=== PATIENT | male | born 1945 | race Caucasian/White ===

== ENCOUNTER 2019-01-17 20:29 | Emergency (ER) | payer OTHER ==
[~2019-01-17] VITALS: Ht 180.3 cm; Wt 131.5 kg
[2019-01-17 21:26] LABS: Source, Urine Clean Catch
[2019-01-17 21:29] LABS: Bilirubin, Urine Neg (Neg); Blood, Urine 5+ (Neg); Glucose Qualitative, Urine Neg (Neg); Ketones, Urine Neg (Neg); Leukocyte Esterase, Urine 3+ (Neg); Nitrite, Urine Pos (Neg); Protein, Urine 3+ (Neg); Specific Gravity, Urine 1.025 (1.003-1.022); Urobilinogen, Urine 1+ (Normal)
[2019-01-17 21:39] LABS: Appearance, Urine Hazy (Clear); Color, Urine Amber (P-Yellow)
[2019-01-17 21:41] LABS: White Blood Cells, Urine TNTC /hpf (0-5)
[2019-01-17 21:42] LABS: Bacteria Many /hpf; Red Blood Cells, Urine 50-100 /hpf (0-2); Squamous Epithelial Cells Few /hpf (Few)
[2019-01-17 22:40] LABS: BASOPHILS ABSOLUTE AUTO 0.06 K/mm3 (0.00-0.23); BASOPHILS PERCENT AUTO 1 % (0-2); EOSINOPHILS ABSOLUTE AUTO 0.21 K/mm3 (0.00-0.68); EOSINOPHILS PERCENT AUTO 2 % (0-6); Hemoglobin 13.3 g/dL (13.5-17.5); IMMATURE GRAN ABSOLUTE AUTO 0.04 K/mm3 (0.00-0.10); IMMATURE GRAN PERCENT AUTO 0 % (0-1); LYMPHOCYTES PERCENT AUTO 19 % (21-46); MONOCYTES ABSOLUTE AUTO 1.09 K/mm3 (0.16-1.47); MONOCYTES PERCENT AUTO 9 % (4-13); Mean Corpuscular HGB Conc 30.9 g/dL (31.5-36.5); Mean Corpuscular Volume 94 fL (80-100); Mean Platelet Volume 10.9 fL (9.1-12.4); NEUTROPHILS PERCENT AUTO 69 % (41-73); Platelet Count 161 K/mm3 (150-400); RDW Coefficient Variation 14.6 % (11.7-14.2); RDW Standard Deviation 50.7 fL (35.1-46.3); Red Blood Cell Count 4.58 M/mm3 (4.30-5.90)
[2019-01-17 22:58] LABS: Alanine Aminotransfer (ALT/SGP 21 U/L (12-78); Albumin/Globulin Ratio 0.8 (0.8-1.8); Alk Phos 130 U/L (50-136); Anion Gap 4 mmol/L (6-16); Aspartate Aminotrans (AST/SGOT 12 U/L (12-37); Bilirubin, Total 0.6 mg/dL (0.1-1.0); Blood Urea Nitrogen 24 mg/dL (8-24); Bun/Creatinine Ratio 26.5 (12.0-20.0); CO2, Blood 30 mmol/L (21-32); Calcium, Blood 8.1 mg/dL (8.5-10.1); Chloride, Blood 111 mmol/L (98-108); Creatinine, Blood 0.91 mg/dL (0.60-1.20); Globulin, Blood 3.7 g/dL (2.2-4.0); Glomerular Filtration Rate >60 (60-); Glucose, Blood 98 mg/dL (70-99); Potassium, Blood 4.1 mmol/L (3.5-5.5); Sodium, Blood 145 mmol/L (136-145); Total Protein, Blood 6.7 g/dL (6.4-8.2)
[2019-01-18] MEDS ORDERED: CEFP200 PO (00:46)
== END 2019-01-18 01:55 | disposition home or self-care (01) ==
LOC: ER 20:29
PROVIDERS: Physician Assistant
DX: N30.91 Cystitis, unspecified with hematuria (principal); J44.9 Chronic obstructive pulmonary disease, unspecified; Z88.5 Allergy status to narcotic agent; Z88.0 Allergy status to penicillin; Z88.1 Allergy status to other antibiotic agents; Z87.891 Personal history of nicotine dependence
CPT/HCPCS: 36415; 80053; 81001; 83690; 85025; 87077; 87086; 87186; 93005; 93010; 94640; 96365; 99283-25; J0696

== ENCOUNTER 2020-05-31 14:20 | Emergency (ER) | payer MEDICARE, OTHER ==
[~2020-05-31] VITALS: Ht 177.8 cm; Wt 96.2 kg
[~2020-05-31 14:20] MED LIST: CEFP200 PO
[2020-05-31 15:09] LABS: BASOPHILS ABSOLUTE AUTO 0.05 K/mm3 (0.00-0.23); BASOPHILS PERCENT AUTO 1 % (0-2); EOSINOPHILS ABSOLUTE AUTO 0.04 K/mm3 (0.00-0.68); EOSINOPHILS PERCENT AUTO 0 % (0-6); Hematocrit 36.7 % (37.0-53.0); Hemoglobin 11.6 g/dL (13.5-17.5); IMMATURE GRAN ABSOLUTE AUTO 0.03 K/mm3 (0.00-0.10); IMMATURE GRAN PERCENT AUTO 0 % (0-1); LYMPHOCYTES ABSOLUTE AUTO 0.66 K/mm3 (0.84-5.20); LYMPHOCYTES PERCENT AUTO 6 % (21-46); MONOCYTES ABSOLUTE AUTO 0.85 K/mm3 (0.16-1.47); MONOCYTES PERCENT AUTO 8 % (4-13); Mean Corpuscular HGB 29.1 pg (26.0-34.0); Mean Corpuscular HGB Conc 31.6 g/dL (31.5-36.5); Mean Corpuscular Volume 92 fL (80-100); Mean Platelet Volume 11.3 fL (9.1-12.4); NEUTROPHILS ABSOLUTE AUTO 9.07 K/mm3 (1.96-9.15); NEUTROPHILS PERCENT AUTO 85 % (41-73); Platelet Count 133 K/mm3 (150-400); RDW Coefficient Variation 13.7 % (11.7-14.2); RDW Standard Deviation 46.2 fL (35.1-46.3); Red Blood Cell Count 3.98 M/mm3 (4.30-5.90)
[2020-05-31 15:29] LABS: Alanine Aminotransfer (ALT/SGP 28 U/L (12-78); Alk Phos 131 U/L (50-136); Anion Gap 5 mmol/L (6-16); Aspartate Aminotrans (AST/SGOT 21 U/L (12-37); Bilirubin, Total 0.7 mg/dL (0.1-1.0); Blood Urea Nitrogen 21 mg/dL (8-24); Bun/Creatinine Ratio 27.1 (12.0-20.0); CO2, Blood 26 mmol/L (21-32); Calcium, Blood 8.3 mg/dL (8.5-10.1); Chloride, Blood 114 mmol/L (98-108); Creatinine, Blood 0.78 mg/dL (0.60-1.20); Globulin, Blood 3.1 g/dL (2.2-4.0); Glomerular Filtration Rate >60 (60-); Glucose, Blood 92 mg/dL (70-99); Potassium, Blood 4.2 mmol/L (3.5-5.5); Sodium, Blood 145 mmol/L (136-145); Total Protein, Blood 6.1 g/dL (6.4-8.2); Troponin I <0.015 ng/mL (0.000-0.040)
[2020-05-31 15:42] LABS: Source, Urine Clean Catch
[2020-05-31 15:50] LABS: Appearance, Urine Hazy (Clear); Bilirubin, Urine Neg (Neg); Blood, Urine 3+ (Neg); Color, Urine Yellow (P-Yellow); Glucose Qualitative, Urine Neg (Neg); Ketones, Urine Neg (Neg); Leukocyte Esterase, Urine 3+ (Neg); Nitrite, Urine Neg (Neg); Protein, Urine 2+ (Neg); Urobilinogen, Urine NORM (Normal)
[2020-05-31 16:03] LABS: Bacteria Mod /hpf; Squamous Epithelial Cells Few /hpf (Few); White Blood Cells, Urine 25-50 /hpf (0-5)
[2020-05-31 16:28] LABS: Influenza A, PCR NEGATIVE (NEGATIVE); Influenza B, PCR NEGATIVE (NEGATIVE); Resp Syncytial Virus, PCR NEGATIVE (NEGATIVE); SARS-Cov-2 (COVID-19) PCR, MMC NEGATIVE (NEGATIVE)
[2020-05-31] MEDS ORDERED: ALBU2.5V5 INH (17:16)
[2020-05-31] MEDS ORDERED: ACET500 PO (17:16)
[2020-05-31] MEDS ORDERED: ALLO300 PO (17:17)
[2020-05-31] MEDS ORDERED: ALBU90OI INH (17:17)
[2020-05-31] MEDS ORDERED: ATOR20 PO (17:18)
[2020-05-31] MEDS ORDERED: CIPR500 PO (17:19)
[2020-05-31] MEDS ORDERED: THERA-D2000 UNIT PO (17:19)
[2020-05-31] MEDS ORDERED: CYCL10 PO (17:20)
[2020-05-31] MEDS ORDERED: CLOB.05TO (17:20)
[2020-05-31] MEDS ORDERED: DOXY100 PO (17:21)
[2020-05-31] MEDS ORDERED: Flonase 0.05% N16 GM (17:23)
[2020-05-31] MEDS ORDERED: FAMO20 PO (17:23)
[2020-05-31] MEDS ORDERED: Isosorbide Mono30 MG PO (17:24)
[2020-05-31] MEDS ORDERED: GUAI200 PO (17:24)
[2020-05-31] MEDS ORDERED: LORA10ER PO (17:25)
[2020-05-31] MEDS ORDERED: Prinivil10 MG PO (17:25)
[2020-05-31] MEDS ORDERED: METF500 PO (17:26)
[2020-05-31] MEDS ORDERED: METO50ER PO (17:27)
[2020-05-31] MEDS ORDERED: MULVITA PO (17:27)
[2020-05-31] MEDS ORDERED: NITR100CA PO (17:28)
[2020-05-31] MEDS ORDERED: STRIVERDI RESPIM4 G1 INH (17:29)
[2020-05-31] MEDS ORDERED: NITR.4SL SL (17:29)
[2020-05-31] MEDS ORDERED: XARELTO20 MG PO (17:29)
[2020-05-31] MEDS ORDERED: ROFL500T PO (17:30)
[2020-05-31] MEDS ORDERED: CEFP200 PO (18:28)
[2020-05-31] MEDS ORDERED: AZIT250 PO (18:28)
== END 2020-05-31 19:04 | disposition home or self-care (01) ==
LOC: ER 14:20
PROVIDERS: Emergency Medicine
DX: J18.9 Pneumonia, unspecified organism (principal); J44.0 Chronic obstructive pulmonary disease with (acute) lower respiratory infection; N39.0 Urinary tract infection, site not specified; R09.02 Hypoxemia; I48.91 Unspecified atrial fibrillation; Z20.822 Contact with and (suspected) exposure to COVID-19; Z88.0 Allergy status to penicillin; Z88.1 Allergy status to other antibiotic agents; Z88.5 Allergy status to narcotic agent; Z79.01 Long term (current) use of anticoagulants; Z79.899 Other long term (current) drug therapy; Z87.891 Personal history of nicotine dependence
CPT/HCPCS: 0241U; 36415; 71045; 80053; 81001; 83605; 83880; 84484; 85025; 87040; 87077; 87086; 87186; 93005; 93010; 96365; 99285-25; A9270; J0456; J7050

== ENCOUNTER 2021-09-03 07:36 | Day surgery (SDC) | payer OTHER, MEDICARE ==
[~2021-09-03] VITALS: Ht 180.3 cm; Wt 102.5 kg
[~2021-09-03 07:36] MED LIST changes: +ACET500 PO; +ALBU2.5V5 INH; +ALBU90OI INH; +ALLO300 PO; +ASPI81CH PO; +ATOR20 PO; +AZIT250 PO; +CIPR500 PO; +CLOB.05TO; +CYCL10 PO; +DOXY100 PO; +FAMO20 PO; +Flonase 0.05% N16 GM; +GUAI200 PO; +Isosorbide Mono30 MG PO; +LORA10ER PO; +METF500 PO; +METO50ER PO; +MULVITA PO; +NITR.4SL SL; +NITR100CA PO; +Prinivil10 MG PO; +ROFL500T PO; +STRIVERDI RESPIM4 G1 INH; +THERA-D2000 UNIT PO; +XARELTO20 MG PO
[2021-09-03] MEDS ORDERED: FURO40 PO (09:16)
[2021-09-03] MEDS ORDERED: FERSU300 PO (09:17)
--- NOTE | 2021-09-03 11:05 | NUR ---
PT TO RECOVERY ROOM POST PROCEDURE. PT AWAKE AND ORIENTED-NO SEDATION GIVEN, DENIES PAIN POST PROCEDURE. MONITOR AFIB 70'S, B/P 125/100, AFEBRILE, SPO2 97% 4L NC-PT CHRONICALLY ON 02. R GROIN NO SWELLING/HEMATOMA, TEGADERM DRSG INTACT; ANGIO SEAL DEPLOYED RLE PULSES 1+ X 2. PT'S AT BEDSIDE ATTENTIVE.
--- NOTE | 2021-09-03 12:35 | NUR ---
PT'S HOB ELEVATED, SITE UNCHANGED. PT TAKING LUNCH WITHOUT ISSUE.
--- NOTE | 2021-09-03 14:45 | NUR ---
PT DRESSED SELF WITHOUT ISSUE, SITE UNCHANGED.
--- NOTE | 2021-09-03 14:45 | NUR ---
ADDENDDUM PT'S IV REMOVED-CANNULA INTACT.
--- NOTE | 2021-09-03 15:01 | NUR ---
PT AND RECEIVED DISCHARGE INSTRUCTIONS, MED LIST AND AFTER CARE INSTRUCTIONS; VERBALIZED GOOD UNDERSTANDING. PT LEFT FACILITY VIA W/C, CONDITION STABLE.
== END 2021-09-03 15:01 | disposition home or self-care (01) ==
LOC: MHTC 07:36
DX: I25.118 Atherosclerotic heart disease of native coronary artery with other forms of angina pectoris (principal); T82.858A Stenosis of other vascular prosthetic devices, implants and grafts, initial encounter; I11.0 Hypertensive heart disease with heart failure; I50.9 Heart failure, unspecified; E78.5 Hyperlipidemia, unspecified; E11.9 Type 2 diabetes mellitus without complications; I48.20 Chronic atrial fibrillation, unspecified; E66.01 Morbid (severe) obesity due to excess calories; G47.33 Obstructive sleep apnea (adult) (pediatric); J44.9 Chronic obstructive pulmonary disease, unspecified; Z95.5 Presence of coronary angioplasty implant and graft; Z88.0 Allergy status to penicillin; Z88.5 Allergy status to narcotic agent; Z88.8 Allergy status to other drugs, medicaments and biological substances; Z79.01 Long term (current) use of anticoagulants; Z79.84 Long term (current) use of oral hypoglycemic drugs; Z79.899 Other long term (current) drug therapy
CPT/HCPCS: 93459; C1760; C1769; C1894; J1644; J7030; J7040; Q9967

== ENCOUNTER 2021-12-12 10:45 | Inpatient (IN) | payer OTHER ==
[~2021-12-12] VITALS: Ht 177.8 cm; Wt 112.8 kg
[~2021-12-12 10:45] MED LIST changes: +FERSU300 PO; +FURO40 PO
[2021-12-12 11:29] LABS: BASOPHILS ABSOLUTE AUTO 0.06 K/mm3 (0.00-0.23); BASOPHILS PERCENT AUTO 0 % (0-2); EOSINOPHILS ABSOLUTE AUTO 0.03 K/mm3 (0.00-0.68); EOSINOPHILS PERCENT AUTO 0 % (0-6); Hematocrit 37.5 % (37.0-53.0); Hemoglobin 11.7 g/dL (13.5-17.5); IMMATURE GRAN ABSOLUTE AUTO 0.06 K/mm3 (0.00-0.10); IMMATURE GRAN PERCENT AUTO 0 % (0-1); LYMPHOCYTES ABSOLUTE AUTO 1.63 K/mm3 (0.84-5.20); LYMPHOCYTES PERCENT AUTO 11 % (21-46); MONOCYTES ABSOLUTE AUTO 0.97 K/mm3 (0.16-1.47); MONOCYTES PERCENT AUTO 7 % (4-13); Mean Corpuscular HGB 28.7 pg (26.0-34.0); Mean Corpuscular HGB Conc 31.2 g/dL (31.5-36.5); Mean Corpuscular Volume 92 fL (80-100); NEUTROPHILS ABSOLUTE AUTO 12.28 K/mm3 (1.96-9.15); NEUTROPHILS PERCENT AUTO 82 % (41-73); Platelet Count 120 K/mm3 (150-400); RDW Coefficient Variation 14.7 % (11.7-14.2); RDW Standard Deviation 49.3 fL (35.1-46.3); Red Blood Cell Count 4.07 M/mm3 (4.30-5.90); White Blood Cell Count 15.03 K/mm3 (4.00-11.30)
[2021-12-12 11:40] LABS: Albumin/Globulin Ratio 0.9 (0.8-1.8); Bilirubin, Total 1.2 mg/dL (0.1-1.0); Bun/Creatinine Ratio 54.3 (12.0-20.0); Calcium, Blood 8.7 mg/dL (8.5-10.1); Creatinine, Blood 0.44 mg/dL (0.60-1.20); Globulin, Blood 3.2 g/dL (2.2-4.0); Potassium, Blood 3.8 mmol/L (3.5-5.5); Total Protein, Blood 6.2 g/dL (6.4-8.2)
[2021-12-12] MEDS ORDERED: OMEP20ER PO (14:38)
[2021-12-12] MEDS ORDERED: POTA10T PO (14:40)
--- NOTE | 2021-12-12 17:34 | NUR ---
SHIFT SUMMARY PATIENT ADMITTED FROM ER FOR SEPSIS DUE TO PNEUMONIA. A&OX4. SBA WHEN UP DUE TO PATIENT SOB WITH EXERTION. ON 5L NC, PRODUCTIVE COUGH PRESENT. SAMPLE COLLECTED AND SENT BY ER. RECEIVED BREATHING TX PER PATIENT REQUEST. PATIENT USES CPAP AT [facility], HOSPITAL MACHINE IN ROOM. ON TELE, A-FIB 80S. SOFT BP ON ARRIVAL. IV FLUIDS STARTED 75ML/HR. LAST BP 105/81. PATIENT STATES THAT IS HIS NORMAL. C/O CURRAN, MEDICATED PER JUN. SWELLING AND BLE DISCOLORATION NOTED. AT BEDSIDE. WILL CONTINUE TO MONITOR.
--- NOTE | 2021-12-12 22:02 | NUR ---
LAB CALLED REGARDING SPUTUM SAMPLE BEING CONTAMINATED WITH UPPER RESPIRATORY MIRELLA AND WILL NEED TO BE RECOLLECTED.
[2021-12-13 03:57] LABS: BASOPHILS ABSOLUTE AUTO 0.05 K/mm3 (0.00-0.23); BASOPHILS PERCENT AUTO 1 % (0-2); EOSINOPHILS ABSOLUTE AUTO 0.14 K/mm3 (0.00-0.68); EOSINOPHILS PERCENT AUTO 2 % (0-6); Hematocrit 34.6 % (37.0-53.0); Hemoglobin 10.6 g/dL (13.5-17.5); IMMATURE GRAN ABSOLUTE AUTO 0.02 K/mm3 (0.00-0.10); IMMATURE GRAN PERCENT AUTO 0 % (0-1); LYMPHOCYTES ABSOLUTE AUTO 1.59 K/mm3 (0.84-5.20); LYMPHOCYTES PERCENT AUTO 18 % (21-46); MONOCYTES ABSOLUTE AUTO 0.72 K/mm3 (0.16-1.47); MONOCYTES PERCENT AUTO 8 % (4-13); Mean Corpuscular HGB 28.6 pg (26.0-34.0); Mean Corpuscular HGB Conc 30.6 g/dL (31.5-36.5); Mean Corpuscular Volume 94 fL (80-100); Mean Platelet Volume 11.3 fL (9.1-12.4); NEUTROPHILS ABSOLUTE AUTO 6.17 K/mm3 (1.96-9.15); NEUTROPHILS PERCENT AUTO 71 % (41-73); Platelet Count 100 K/mm3 (150-400); RDW Standard Deviation 51.3 fL (35.1-46.3); White Blood Cell Count 8.69 K/mm3 (4.00-11.30)
[2021-12-13 04:41] LABS: Albumin, Blood 2.5 g/dL (3.4-5.0); Albumin/Globulin Ratio 0.8 (0.8-1.8); Bilirubin, Total 0.8 mg/dL (0.1-1.0); Bun/Creatinine Ratio 25.7 (12.0-20.0); Creatinine, Blood 0.9 mg/dL (0.60-1.20); Magnesium, Blood 1.9 mg/dL (1.6-2.4); Potassium, Blood 3.9 mmol/L (3.5-5.5); Total Protein, Blood 5.5 g/dL (6.4-8.2)
--- NOTE | 2021-12-13 06:36 | NUR ---
SHIFT SUMMARY PT IS ALERT AND ORIENTED. THERE HAVE BEEN NO ACUTE CHANGES T/O THE NIGHT. PT DENIES NEW ONSET CARDIAC PAIN/PRESSURE. HE DOES REPORT HAVING CHRONIC CHEST PAIN. HE HAS REMAINED ON 5L NC AND CPAP WITH 5L BLEED-IN DURING THE NIGHT. HE IS ABLE TO STAND WHILE USING THE URINAL BUT WILL DESAT INTO MID 80'S AND REPORTS FEELING SOB. VITALS ARE STABLE. CALL LIGHT IS WITHIN REACH.
--- NOTE | 2021-12-13 15:51 | NUR ---
SHIFT SUMMARY PT A&OX4, VSS/5L BASELINE, CALLS APPROPRIATELY, CBG CNI. DON PO ADA. VOIDING WELL/URINAL. AMB SBA TO BRP/BM TODAY. REPOSITIONS SELF WELL IN BED. BT/ABX PER EMAR. WILL REPORT TO ONCOMING NOC RN.
[2021-12-13 19:00] LABS: Percent Saturation 6.5 % (20.0-50.0)
[2021-12-14 03:43] LABS: BASOPHILS ABSOLUTE AUTO 0.03 K/mm3 (0.00-0.23); BASOPHILS PERCENT AUTO 0 % (0-2); EOSINOPHILS ABSOLUTE AUTO 0.16 K/mm3 (0.00-0.68); EOSINOPHILS PERCENT AUTO 2 % (0-6); Hematocrit 39.3 % (37.0-53.0); Hemoglobin 11.9 g/dL (13.5-17.5); IMMATURE GRAN ABSOLUTE AUTO 0.02 K/mm3 (0.00-0.10); IMMATURE GRAN PERCENT AUTO 0 % (0-1); LYMPHOCYTES ABSOLUTE AUTO 1.63 K/mm3 (0.84-5.20); LYMPHOCYTES PERCENT AUTO 22 % (21-46); MONOCYTES ABSOLUTE AUTO 0.58 K/mm3 (0.16-1.47); MONOCYTES PERCENT AUTO 8 % (4-13); Mean Corpuscular HGB 28.5 pg (26.0-34.0); Mean Corpuscular HGB Conc 30.3 g/dL (31.5-36.5); Mean Corpuscular Volume 94 fL (80-100); Mean Platelet Volume 11.2 fL (9.1-12.4); NEUTROPHILS ABSOLUTE AUTO 4.97 K/mm3 (1.96-9.15); NEUTROPHILS PERCENT AUTO 67 % (41-73); Platelet Count 124 K/mm3 (150-400); RDW Standard Deviation 51.8 fL (35.1-46.3); Red Blood Cell Count 4.18 M/mm3 (4.30-5.90); White Blood Cell Count 7.39 K/mm3 (4.00-11.30)
[2021-12-14 04:03] LABS: Bun/Creatinine Ratio 26.3 (12.0-20.0); Calcium, Blood 8.2 mg/dL (8.5-10.1); Creatinine, Blood 0.84 mg/dL (0.60-1.20); Potassium, Blood 3.7 mmol/L (3.5-5.5)
--- NOTE | 2021-12-14 05:10 | NUR ---
SHIFT SUMMARY PT IS ALERT AND ORIENTED X4. THERE HAVE BEEN NO ACUTE CHANGES T/O THE NIGHT. PT DENIES ACUTE CHEST PAIN/PRESSURE REPORTS CHRONIC CHEST WALL PAIN. VITALS ARE STABLE AND PT IS ON 5L NC (BASELINE) ON NC OR CPAP. HE IS ABLE TO DANGLE AT BEDSIDE TO USE URINAL. AT BEGINING OF SHIFT PT REPORTED FEELING HEADACHE DUE TO STRESSFUL HOME SITUATION. HE WAS TREATED PER ORDER AND WAS ABLE TO REST. CALL LIGHT IS WITHIN REACH.
--- NOTE | 2021-12-14 09:32 | NUR ---
AM NOTE: PATIENT ALERT AND ORIENTED X4. USES CANE/WALKER AT BASELINE. DENIES NUMBNESS/TINGLING. PERRLA. COMPLAINS OF OVERALL JOINT PAIN RELATED TO ATHRITIS. ON 5L NASAL CANNULA AT BASELINE SATING LOW - MID 90'S. LUNGS SOUNDING EXPIRATORY WHEEZE THROUGHOUT. BREATHING TREATMENTS NEEDED. OCCASIONAL HARSH/WET/LOOSE COUGH. SPUTUM PINK/RED TINGED AND THICK IN NATURE. PATIENT STATES HIS BREATHING IS NOT BACK TO BASELINE YET. TELE SHOWING AFIB WITH PVC'S. HR 90'S. DENIES NEW CHEST PAIN/PRESSURE. COMPLAINS OF CHRONIC CHEST PAIN AND DESCRIBES IT DULL. STATES HE SEE DR. CAMPUZANO OUTPATIENT AND WAS RECENTLY PRESCRIBED A NEW "[place]" MEDICATION IN ADDITION TO HIS IMDUR. TO BRING IN MED LIST FOR THIS RN TO DOUBLE CHECK MED REC. STRONG PERIPHERAL PULSES WITH SOME +1 EDEMA TO BILATERAL LOWER EXTREMITIES. DENIES ABDOMINAL PAIN/NAUSEA. STATES HE SELF CATHS 1-2 TIMES PER WEEK TO STRETCH HIS URETHRA. URINATING WNL AT THIS TIME. AC BLOOD SUGAR CHECKS. TOLERATING ADA DIET. DENIES NEEDS AT THIS TIME. CALL LIGHT IN REACH. WILL CONTINUE TO MONITOR.
[2021-12-14] MEDS ORDERED: MOME220I INH (12:51)
[2021-12-14] MEDS ORDERED: STIOLTO RESPIMAT4 G1 INH (12:51)
[2021-12-14] MEDS ORDERED: MULTI-VITAMIN1 EAC2 PO (12:52)
[2021-12-14] MEDS ORDERED: RANO500T PO (12:55)
--- NOTE | 2021-12-14 15:49 | NUR ---
CALL PLACED TO DR. MAGDALENO TO UPDATE ON HOME MEDICATION LIST. BROUGHT IN HOME MEDS AND THIS RN UPDATED MED REC. ORDERS TO ADJUST DOSAGE FOR METOPROLOL, IMDUR, AND OMEPRAZOLE BASED ON HOME DOSAGE. THIS RN ADJUSTED ORDERS AND UPDATED PATIENT AND FAMILY. ROFLUMILAST BROUGHT IN AND VERIFIED WITH PHARMACY, MEDICATION IN PATIENT LOCK BOX AND PATIENT UPDATED.
--- NOTE | 2021-12-14 17:32 | NUR ---
SHIFT SUMMARY: SEE PREVIOUS NOTES FOR UPDATES THROUGHOUT THE DAY. NO ACUTE CHANGES. PATIENT COMPLAINS OF HEADACHE AND SOME MILD CHRONIC CHEST PAIN THROUGHOUT DAY AND REQUESTED TYLENOL X1. HOME MEDS UPDATED. VITAL SIGNS REMAIN STABLE. AT BEDSIDE AND OTHER VISITORS THROUGHOUT THE DAY. TELE REMAINS AFIB WITH PVC'S HR 90'S. DENIES NEW CHEST PAIN/PRESSURE. REMAINS ON 5L O2 VIA NASAL CANNULA, WHICH IS PATIENT BASELINE. IV ANTIBIOTIC INFUSED THIS SHIFT. EATING DINNER AT THIS TIME. AC BLOOD SUGARS WNL. USING URINAL TO VOID. DENIES ABDOMINAL PAIN. CONTINUES TO HAVE A HARSH/WET SOUNDING COUGH, PRODUCING THICK PINK TINGED SPUTUM. CALL LIGHT IN REACH. DENIES NEEDS AT THIS TIME, WILL CONTINUE TO MONITOR AND REPORT OFF TO ONCOMING RN.
--- NOTE | 2021-12-15 04:44 | NUR ---
SHIFT SUMMARY PT TRANSFERRED FROM PCU AT 2158 LAST EVENING. PT ON 5L O2, BEING ADMITTED FOR DYSPNEA AND PNEUMONIA. PT COOPERATIVE AND PLEASANT. NO CURRENT COMPLAINTS. PT SLEEPING MOST OF THE NIGHT. CALL LIGHT WITHIN HIS REACH.
[2021-12-15 05:32] LABS: BASOPHILS ABSOLUTE AUTO 0.05 K/mm3 (0.00-0.23); BASOPHILS PERCENT AUTO 1 % (0-2); EOSINOPHILS ABSOLUTE AUTO 0.27 K/mm3 (0.00-0.68); EOSINOPHILS PERCENT AUTO 4 % (0-6); IMMATURE GRAN ABSOLUTE AUTO 0.02 K/mm3 (0.00-0.10); IMMATURE GRAN PERCENT AUTO 0 % (0-1); LYMPHOCYTES ABSOLUTE AUTO 1.14 K/mm3 (0.84-5.20); LYMPHOCYTES PERCENT AUTO 18 % (21-46); MONOCYTES PERCENT AUTO 11 % (4-13); Mean Corpuscular HGB 28.7 pg (26.0-34.0); Mean Corpuscular HGB Conc 30.6 g/dL (31.5-36.5); Mean Corpuscular Volume 94 fL (80-100); NEUTROPHILS PERCENT AUTO 66 % (41-73); Platelet Count 116 K/mm3 (150-400); RDW Coefficient Variation 14.8 % (11.7-14.2); RDW Standard Deviation 51.3 fL (35.1-46.3); Red Blood Cell Count 3.83 M/mm3 (4.30-5.90); White Blood Cell Count 6.48 K/mm3 (4.00-11.30)
[2021-12-15 05:58] LABS: Bun/Creatinine Ratio 23.8 (12.0-20.0); Calcium, Blood 8.1 mg/dL (8.5-10.1); Creatinine, Blood 0.84 mg/dL (0.60-1.20); Potassium, Blood 3.6 mmol/L (3.5-5.5)
--- NOTE | 2021-12-15 16:42 | NUR ---
SHIFT SUMMARY PT AWAKE AT START OF SHIFT. A&O, PLEASANT AND CO-OP. UP TO EOB FOR RT TX AND THEN EATING BREAKFAST. FAMILY IN TO VISIT EARLY AND LATER HERE ALL DAY. UP TO SHOWER INDEPENDENTLY. USES URINAL AT BS NEEDED. HX OF A-FIB; SR ON TELE TODAY. ADMITTED FOR SEPSIS R/T PNM. LUNGS T/O WITH EXP WHEEZES IN R LOBES AND CRACKLES TO LLL. NO C/O PAIN. CURRENTLY ON 4L VIA NC W/BIOX IN MID 90'S; HOME O2 IS 5L AT BASELINE. PT FINISHING RT TX AT THIS TIME. DENIED FURTHER NEEDS. CALL LT IN REACH.
--- NOTE | 2021-12-16 03:57 | NUR ---
SHIFT SUMMARY NO ACUTE CHANGES TO PT CONDITION. PT DID HAVE SOME CHEST WALL PAIN EARLIER TONIGHT, MEDICATED WITH TYLENOL PER EMAR. NO COMPLAINTS CURRENTLY. PT SLEEPING THROUGH MOST OF THE NIGHT. PT HAS CALL LIGHT WITHIN REACH.
[2021-12-16] MEDS ORDERED: LEVFLO500 PO (11:21)
[2021-12-16] MEDS ORDERED: FAMO20 PO (11:21)
[2021-12-16] MEDS ORDERED: VISBIOME 112.51 EACH PO (11:22)
--- NOTE | 2021-12-16 14:49 | NUR ---
PT AWAKE DURING SHIFT REPORT. A&O, PLEASANT AND CO-OP. SITTING UP TO EOB. DR LARES IN TO SEE PT EARLY. HOME O2 EVAL DONE FOR D/C; UNCHANGED FROM PREVIOUS, PER RT. PT REMAINED ON 4L O2 WNL'S PAST COUPLE OF DAYS; BASELINE HOME O2 AT 5L, PER PT. D/C ORDERS PLACED. PT ABLE TO DRESS HIMSELF. TO RM THIS AM. D/C INSTRUCTIONS DISCUSSED WITH PT AND ; VERBALIZED UNDERSTANDING. PT ASSISTED OUT TO CAR VIA W/C.
== END 2021-12-16 12:09 | disposition home or self-care (01) | DRG 871 ==
LOC: ER 10:45 → PCU 12:56 → MEDS 12-14 21:49
PROVIDERS: Emergency Medicine; Internal Medicine; Nurse Practitioner Acute Care; ADMIT Internal Medicine
DX: A41.9 Sepsis, unspecified organism (principal); J18.9 Pneumonia, unspecified organism; J44.0 Chronic obstructive pulmonary disease with (acute) lower respiratory infection; J96.11 Chronic respiratory failure with hypoxia; R04.2 Hemoptysis; Z66 Do not resuscitate; I11.0 Hypertensive heart disease with heart failure; I48.91 Unspecified atrial fibrillation; I50.9 Heart failure, unspecified; I25.10 Atherosclerotic heart disease of native coronary artery without angina pectoris; E78.5 Hyperlipidemia, unspecified; M10.9 Gout, unspecified; E11.9 Type 2 diabetes mellitus without complications; G47.33 Obstructive sleep apnea (adult) (pediatric); D69.6 Thrombocytopenia, unspecified; D63.8 Anemia in other chronic diseases classified elsewhere; Z87.891 Personal history of nicotine dependence; Z95.1 Presence of aortocoronary bypass graft; Z99.81 Dependence on supplemental oxygen; Z99.89 Dependence on other enabling machines and devices; Z88.0 Allergy status to penicillin; Z88.6 Allergy status to analgesic agent; Z88.8 Allergy status to other drugs, medicaments and biological substances; Z79.84 Long term (current) use of oral hypoglycemic drugs; Z79.82 Long term (current) use of aspirin; Z79.899 Other long term (current) drug therapy
CPT/HCPCS: 36415; 71045; 80048; 80053; 82607; 82728; 82746; 82947; 83540; 83550; 83605; 83735; 83880; 84145; 84484; 85025; 87040; 93005; 93010; 94375; 94640; 94660; 94664; 94761; 94762; 96365; 96375; 98960; 99285-25; A9270; J0456; J0696; J7030; J7050

== ENCOUNTER 2022-05-20 15:06 | Emergency (ER) | payer OTHER ==
[~2022-05-20] VITALS: Ht 177.8 cm; Wt 98.9 kg
[~2022-05-20 15:06] MED LIST changes: +LEVFLO500 PO; +MOME220I INH; +MULTI-VITAMIN1 EAC2 PO; +OMEP20ER PO; +POTA10T PO; +RANO500T PO; +STIOLTO RESPIMAT4 G1 INH; +VISBIOME 112.51 EACH PO
[2022-05-20 15:51] LABS: BASOPHILS ABSOLUTE AUTO 0.03 K/mm3 (0.00-0.23); BASOPHILS PERCENT AUTO 0 % (0-2); EOSINOPHILS ABSOLUTE AUTO 0.17 K/mm3 (0.00-0.68); EOSINOPHILS PERCENT AUTO 2 % (0-6); Hematocrit 33.8 % (37.0-53.0); Hemoglobin 10.9 g/dL (13.5-17.5); IMMATURE GRAN ABSOLUTE AUTO 0.03 K/mm3 (0.00-0.10); IMMATURE GRAN PERCENT AUTO 0 % (0-1); LYMPHOCYTES ABSOLUTE AUTO 1.33 K/mm3 (0.84-5.20); LYMPHOCYTES PERCENT AUTO 16 % (21-46); MONOCYTES ABSOLUTE AUTO 0.84 K/mm3 (0.16-1.47); MONOCYTES PERCENT AUTO 10 % (4-13); Mean Corpuscular HGB 30.7 pg (26.0-34.0); Mean Corpuscular HGB Conc 32.2 g/dL (31.5-36.5); Mean Corpuscular Volume 95 fL (80-100); Mean Platelet Volume 10.9 fL (9.1-12.4); NEUTROPHILS ABSOLUTE AUTO 5.84 K/mm3 (1.96-9.15); NEUTROPHILS PERCENT AUTO 71 % (41-73); Platelet Count 164 K/mm3 (150-400); RDW Coefficient Variation 14.6 % (11.7-14.2); RDW Standard Deviation 51.9 fL (35.1-46.3); Red Blood Cell Count 3.55 M/mm3 (4.30-5.90); White Blood Cell Count 8.24 K/mm3 (4.00-11.30)
[2022-05-20 16:06] LABS: Albumin, Blood 2.7 g/dL (3.4-5.0); Albumin/Globulin Ratio 0.8 (0.8-1.8); Bilirubin, Total 0.7 mg/dL (0.1-1.0); Bun/Creatinine Ratio 26.3 (12.0-20.0); Calcium, Blood 8.5 mg/dL (8.5-10.1); Creatinine, Blood 0.95 mg/dL (0.60-1.20); Globulin, Blood 3.6 g/dL (2.2-4.0); Potassium, Blood 3.8 mmol/L (3.5-5.5); Total Protein, Blood 6.3 g/dL (6.4-8.2)
[2022-05-20 16:53] LABS: Base Excess Venous 6.2 mmol/L; Bicarbonate Venous 28.6 mmol/L (24.0-30.0); PCO2 Venous 56.2 mmHg (38-42); pH Blood Venous 7.36 (7.34-7.37)
[2022-05-20] MEDS ORDERED: AZIT250 PO (18:50)
[2022-05-20] MEDS ORDERED: PRED20 PO (18:50)
== END 2022-05-20 19:10 | disposition home or self-care (01) ==
LOC: ER 15:06
PROVIDERS: Student in an Organized Health Care Education/Training Program
DX: I11.0 Hypertensive heart disease with heart failure (principal); I50.9 Heart failure, unspecified; J44.9 Chronic obstructive pulmonary disease, unspecified; I25.10 Atherosclerotic heart disease of native coronary artery without angina pectoris; E11.9 Type 2 diabetes mellitus without complications; Z88.0 Allergy status to penicillin; Z88.1 Allergy status to other antibiotic agents; Z88.8 Allergy status to other drugs, medicaments and biological substances; Z88.5 Allergy status to narcotic agent; Z79.899 Other long term (current) drug therapy; Z79.84 Long term (current) use of oral hypoglycemic drugs; Z79.02 Long term (current) use of antithrombotics/antiplatelets; Z95.1 Presence of aortocoronary bypass graft; Z87.891 Personal history of nicotine dependence
CPT/HCPCS: 71046; 80053; 82803; 83880; 84484; 85025; 93005; 93010; 94640; 94664; 96374; 99285-25; A9270; J1940; J7512

== ENCOUNTER 2023-05-09 10:03 | Inpatient (IN) | payer OTHER ==
[~2023-05-09] VITALS: Ht 177.8 cm; Wt 98.0 kg
[~2023-05-09 10:03] MED LIST changes: +METO100ER PO; -METO50ER PO; +PRED20 PO
[2023-05-09 10:51] LABS: Base Excess Venous 0.5 mmol/L; Bicarbonate Venous 23.3 mmol/L (24.0-30.0)
[2023-05-09 10:53] LABS: pH Blood Venous 7.27 (7.34-7.37)
[2023-05-09 11:16] LABS: BASOPHILS ABSOLUTE AUTO 0.06 K/mm3 (0.00-0.23); BASOPHILS PERCENT AUTO 1 % (0-2); EOSINOPHILS ABSOLUTE AUTO 0.04 K/mm3 (0.00-0.68); EOSINOPHILS PERCENT AUTO 1 % (0-6); Hematocrit 39.4 % (37.0-53.0); Hemoglobin 12.1 g/dL (13.5-17.5); IMMATURE GRAN ABSOLUTE AUTO 0.06 K/mm3 (0.00-0.10); IMMATURE GRAN PERCENT AUTO 1 % (0-1); LYMPHOCYTES ABSOLUTE AUTO 0.68 K/mm3 (0.84-5.20); LYMPHOCYTES PERCENT AUTO 8 % (21-46); MONOCYTES ABSOLUTE AUTO 0.67 K/mm3 (0.16-1.47); MONOCYTES PERCENT AUTO 8 % (4-13); Mean Corpuscular HGB 29.6 pg (26.0-34.0); Mean Corpuscular HGB Conc 30.7 g/dL (31.5-36.5); Mean Corpuscular Volume 96 fL (80-100); Mean Platelet Volume 10.4 fL (9.1-12.4); NEUTROPHILS ABSOLUTE AUTO 7.37 K/mm3 (1.96-9.15); NEUTROPHILS PERCENT AUTO 83 % (41-73); Platelet Count 178 K/mm3 (150-400); RDW Coefficient Variation 14.1 % (11.7-14.2); RDW Standard Deviation 49.6 fL (35.1-46.3); Red Blood Cell Count 4.09 M/mm3 (4.30-5.90); White Blood Cell Count 8.88 K/mm3 (4.00-11.30)
[2023-05-09 11:37] LABS: Source, Urine Clean Catch
[2023-05-09 11:45] LABS: Albumin/Globulin Ratio 0.7 (0.8-1.8); Bilirubin, Total 0.4 mg/dL (0.1-1.0); Bun/Creatinine Ratio 21.7 (12.0-20.0); Calcium, Blood 8.9 mg/dL (8.5-10.1); Creatinine, Blood 0.97 mg/dL (0.60-1.20); Globulin, Blood 4.3 g/dL (2.2-4.0); Potassium, Blood 4.3 mmol/L (3.5-5.5); Total Protein, Blood 7.3 g/dL (6.4-8.2)
[2023-05-09 11:51] LABS: Influenza A, PCR NEGATIVE (NEGATIVE); Influenza B, PCR NEGATIVE (NEGATIVE); Resp Syncytial Virus, PCR NEGATIVE (NEGATIVE)
[2023-05-09 11:52] LABS: Bilirubin, Urine Neg (Neg); Blood, Urine Neg (Neg); Glucose Qualitative, Urine Neg (Neg); Ketones, Urine Neg (Neg); Leukocyte Esterase, Urine Neg (Neg); Nitrite, Urine Neg (Neg); Protein, Urine Neg (Neg); Urobilinogen, Urine NORM (Normal)
[2023-05-09 11:53] LABS: SARS-Cov-2 (COVID-19) PCR, MMC POSITIVE (NEGATIVE)
[2023-05-09 12:00] LABS: Appearance, Urine Clear (Clear); Color, Urine Yellow (P-Yellow)
[2023-05-09 15:00] VITALS: BP 116/82
[2023-05-09 21:06] VITALS: BP 124/90
[2023-05-09 23:26] VITALS: BP 117/84
[2023-05-10 04:02] VITALS: BP 126/93
[2023-05-10 04:08] LABS: Base Excess Venous 3.1 mmol/L; Bicarbonate Venous 26.7 mmol/L (24.0-30.0); PCO2 Venous 40.7 mmHg (38-42); pH Blood Venous 7.44 (7.34-7.37)
[2023-05-10 04:19] LABS: BASOPHILS ABSOLUTE AUTO 0.01 K/mm3 (0.00-0.23); BASOPHILS PERCENT AUTO 0 % (0-2); EOSINOPHILS PERCENT AUTO 0 % (0-6); Hematocrit 35.6 % (37.0-53.0); Hemoglobin 11.1 g/dL (13.5-17.5); IMMATURE GRAN ABSOLUTE AUTO 0.02 K/mm3 (0.00-0.10); IMMATURE GRAN PERCENT AUTO 0 % (0-1); LYMPHOCYTES ABSOLUTE AUTO 0.88 K/mm3 (0.84-5.20); LYMPHOCYTES PERCENT AUTO 18 % (21-46); MONOCYTES ABSOLUTE AUTO 0.09 K/mm3 (0.16-1.47); MONOCYTES PERCENT AUTO 2 % (4-13); Mean Corpuscular HGB 29.5 pg (26.0-34.0); Mean Corpuscular HGB Conc 31.2 g/dL (31.5-36.5); Mean Corpuscular Volume 95 fL (80-100); Mean Platelet Volume 10.7 fL (9.1-12.4); NEUTROPHILS ABSOLUTE AUTO 3.87 K/mm3 (1.96-9.15); NEUTROPHILS PERCENT AUTO 80 % (41-73); Platelet Count 177 K/mm3 (150-400); RDW Standard Deviation 48.5 fL (35.1-46.3); Red Blood Cell Count 3.76 M/mm3 (4.30-5.90); White Blood Cell Count 4.87 K/mm3 (4.00-11.30)
[2023-05-10 04:59] LABS: Albumin, Blood 2.5 g/dL (3.4-5.0); Albumin/Globulin Ratio 0.7 (0.8-1.8); Bilirubin, Total 0.3 mg/dL (0.1-1.0); Bun/Creatinine Ratio 31.1 (12.0-20.0); Calcium, Blood 8.1 mg/dL (8.5-10.1); Creatinine, Blood 0.84 mg/dL (0.60-1.20); Globulin, Blood 3.8 g/dL (2.2-4.0); Percent Saturation 7.6 % (20.0-50.0); Potassium, Blood 4.2 mmol/L (3.5-5.5); Total Protein, Blood 6.3 g/dL (6.4-8.2)
--- NOTE | 2023-05-10 05:44 | NUR ---
LINE STAKER SUMMARY PT HAS REMAINED ALERT AND ORIENTED THIS SHIFT COMMUNICATING APPROPRIATELY W STAFF. PT HAD AN UNEVENTFUL NIGHT AT HE SLEPT COMFRTABLY FOR MOST OF THE NIGHT. PT MAINTAINED SPO2 >94% ON CPAP OF 10 W 35% FIO2. BP WNL AND STABLE. MONITOR SHOWING AFIB 60'S-70'S. PT AFEBRILE THIS SHIFT. WILL REPORT TO ONCOMING RN.
[2023-05-10 08:52] VITALS: BP 119/83
[2023-05-10 11:26] VITALS: BP 89/67
[2023-05-10 15:28] VITALS: BP 85/65
--- NOTE | 2023-05-10 17:57 | NUR ---
Shift Summary Pt alert, oriented x4; calm and cooperative with care. Pt up to bathroom with sba, up in recliner for majority of shift. Pt reports chronic pain; denies needs for medications. Pt denies chest pain/pressure, sob, nausea and dizziness. Spo2 >90% on 6l o2 via nc while at rest, desaturates with cough/activity. Tele afib 80-90's, bp soft. Edema noted to ble/ankles. Abd soft, nontender, +bt t/o. Other vss. Will continue to monitor.
[2023-05-10 19:45] VITALS: BP 91/70
--- NOTE | 2023-05-10 22:01 | NUR ---
ASSUMPTION OF CARE: PATIENT IS ALERT AND ORIENTED X 4 DENIES CHEST PAIN PRESSURE OR ACTIVE SOB OR ANY AT REST. PATIENT IS ON HOME BASELINE AMOUNT OF OXYGEN 6L VIA NC. SOFTER BLOOD PRESSURE MAP >65 PATIENT ENDORSES HE IS TYPICALLY LOW. NO CONCERNS WILL MONITOR PER UNIT PROTOCOL AND PRN IN PATIENT CONDITION. CPAP IN THE ROOM FOR SLEEP. 6L BLEED IN. PATIENT IMPROVING, NO CONCERN FROM THIS RN.
[2023-05-10 23:43] VITALS: BP 104/75
[2023-05-11 03:39] VITALS: BP 116/70
[2023-05-11 03:41] LABS: Base Excess Venous 5.7 mmol/L; Bicarbonate Venous 29.2 mmol/L (24.0-30.0); PCO2 Venous 37.4 mmHg (38-42)
[2023-05-11 04:17] LABS: BASOPHILS ABSOLUTE AUTO 0.01 K/mm3 (0.00-0.23); BASOPHILS PERCENT AUTO 0 % (0-2); EOSINOPHILS PERCENT AUTO 0 % (0-6); Hematocrit 32.9 % (37.0-53.0); Hemoglobin 10.3 g/dL (13.5-17.5); IMMATURE GRAN ABSOLUTE AUTO 0.05 K/mm3 (0.00-0.10); IMMATURE GRAN PERCENT AUTO 1 % (0-1); LYMPHOCYTES ABSOLUTE AUTO 0.78 K/mm3 (0.84-5.20); LYMPHOCYTES PERCENT AUTO 9 % (21-46); MONOCYTES ABSOLUTE AUTO 0.28 K/mm3 (0.16-1.47); MONOCYTES PERCENT AUTO 3 % (4-13); Mean Corpuscular HGB Conc 31.3 g/dL (31.5-36.5); Mean Corpuscular Volume 93 fL (80-100); Mean Platelet Volume 10.8 fL (9.1-12.4); NEUTROPHILS ABSOLUTE AUTO 7.55 K/mm3 (1.96-9.15); NEUTROPHILS PERCENT AUTO 87 % (41-73); Platelet Count 195 K/mm3 (150-400); RDW Coefficient Variation 13.8 % (11.7-14.2); RDW Standard Deviation 47.4 fL (35.1-46.3); Red Blood Cell Count 3.55 M/mm3 (4.30-5.90); White Blood Cell Count 8.67 K/mm3 (4.00-11.30)
[2023-05-11 04:37] LABS: Albumin, Blood 2.5 g/dL (3.4-5.0); Albumin/Globulin Ratio 0.7 (0.8-1.8); Bilirubin, Total 0.3 mg/dL (0.1-1.0); Bun/Creatinine Ratio 34.6 (12.0-20.0); Calcium, Blood 8.3 mg/dL (8.5-10.1); Creatinine, Blood 1.04 mg/dL (0.60-1.20); Globulin, Blood 3.4 g/dL (2.2-4.0); Magnesium, Blood 2.2 mg/dL (1.6-2.4); Phosphorus, Blood 3.5 mg/dL (2.5-4.9); Potassium, Blood 4.1 mmol/L (3.5-5.5); Total Protein, Blood 5.9 g/dL (6.4-8.2)
--- NOTE | 2023-05-11 06:12 | NUR ---
EOS: NO ACUTE CHANGES. STAUTS IMPROVING. DENIES ANY CHEST PAIN PRESSURE OR SOB. SEE ASSUMPTION OF CARE, NO CHANGES.
[2023-05-11 10:13] VITALS: BP 90/72
[2023-05-11 18:53] VITALS: BP 89/62
--- NOTE | 2023-05-11 19:07 | NUR ---
SHIFT SUMMARY: PT HAS BEEN A&Ox4, ABLE TO MAKE NEEDS KNOWN, COOPERATIVE W/CARE. PT REPORTS IMPROVEMENT TO HIS SOB, IS CURRENTLY ON BASELINE O2 AT 6 L/MIN, O2 SATS >92%. PT DENIES CP, BP CONTINUES TO BE SOFT WHICH PT STATES IS NORMAL FOR HIM. AC BLOOD SUGAR CHECKS HAVE BEEN WNL. PT HAS BEEN STANDING INDEPENDENTLY AT BEDSIDE FOR URINAL USE W/OUT DIFFICULTY. AT THIS TIME, PT IS RESTING IN BED QUIETLY WITH CALL LIGHT IN REACH. REPORT HAS BEEN GIVEN TO ESPERANZA FRANCO.
[2023-05-11 21:46] VITALS: BP 94/67
[2023-05-11 23:59] LABS: Source, Urine Clean Catch
[2023-05-12 00:02] LABS: Bilirubin, Urine Neg (Neg); Blood, Urine Neg (Neg); Glucose Qualitative, Urine Neg (Neg); Ketones, Urine Neg (Neg); Leukocyte Esterase, Urine 2+ (Neg); Nitrite, Urine Pos (Neg); Protein, Urine 1+ (Neg); Urobilinogen, Urine NORM (Normal)
[2023-05-12 00:52] LABS: Appearance, Urine Hazy (Clear); Color, Urine Yellow (P-Yellow)
[2023-05-12 00:55] LABS: Calcium Phosphate Crystals Few /hpf
[2023-05-12 00:56] LABS: Bacteria Many /hpf; Red Blood Cells, Urine 0-2 /hpf (0-2); Squamous Epithelial Cells Few /hpf (Few)
[2023-05-12 04:52] VITALS: BP 90/60
--- NOTE | 2023-05-12 06:47 | NUR ---
SHIFT SUMMARY PATIENT ALERT AND ORIENTED X4. MEDICATED PER EMAR FOR GENERALIZED PAIN. PATIENT DENIED HAVING CHEST PAIN OR SHORTNESS OF BREATH. ON HOME DOSE OF 5 LITERS O2 VIA NC WITH SPO2 >90%. SBP IN THE 90'S, MAP >65. NO ACUTE ISSUES NOTED OVERNIGHT. WILL CONTINUE TO MONITOR. CALL LIGHT WITHIN REACH.
--- NOTE | 2023-05-12 07:30 | NUR ---
INITIAL ASSESSMENT: Patient is alert and oriented x4, he reports 6/10 headache-medicated with tyelnol.He reports he has chronic neuropathy in his hands and feet. He is sitting on the edge of the bed reading. HR Irreg, he has a history of A-Fib, rate is currently in the 80s. Patient states he has slight chest pain, he reports he has chest pain, "all the time at home, its better than when I came in." LS DIM T/O, biox is 98% on 5L via NC. Patient states he has been having a frequent cough with clear to white sputum. BT+, pt states he had a BM yesterday. PPP. He has dry flaky skin with a brownish discoloration to BLE. He started to C/O burning with urination during nightman, he states he has a chronic issue with UTIs and is frequently on antibiotics at home, he would like a new script for discharge. He denies other needs at this time, call light in reach.
[2023-05-12 07:48] VITALS: BP 103/74
[2023-05-12] MEDS ORDERED: OLUMIANT2 MG PO (09:28)
[2023-05-12] MEDS ORDERED: PRED20 PO (09:30)
[2023-05-12] MEDS ORDERED: CIPR500 PO (09:37)
--- NOTE | 2023-05-12 10:36 | NUR ---
DISCHARGE: Patient verbalized understanding of discharge instructions and new medications. He was discharged home via with friend.
== END 2023-05-12 10:38 | disposition home or self-care (01) | DRG 177 ==
LOC: ER 10:03 → PCU 13:28
PROVIDERS: Emergency Medicine; Nurse Practitioner Acute Care; Student in an Organized Health Care Education/Training Program; ADMIT Internal Medicine
DX: U07.1 COVID-19 (principal); J12.82 Pneumonia due to coronavirus disease 2019; J96.21 Acute and chronic respiratory failure with hypoxia; J96.22 Acute and chronic respiratory failure with hypercapnia; J44.1 Chronic obstructive pulmonary disease with (acute) exacerbation; J44.0 Chronic obstructive pulmonary disease with (acute) lower respiratory infection; E87.4 Mixed disorder of acid-base balance; E87.3 Alkalosis; I50.22 Chronic systolic (congestive) heart failure; I48.20 Chronic atrial fibrillation, unspecified; Z66 Do not resuscitate; E11.9 Type 2 diabetes mellitus without complications; I25.10 Atherosclerotic heart disease of native coronary artery without angina pectoris; D50.9 Iron deficiency anemia, unspecified; M10.9 Gout, unspecified; G47.33 Obstructive sleep apnea (adult) (pediatric); Z95.1 Presence of aortocoronary bypass graft; Z99.81 Dependence on supplemental oxygen; Z86.74 Personal history of sudden cardiac arrest; Z79.51 Long term (current) use of inhaled steroids; Z79.891 Long term (current) use of opiate analgesic; Z79.84 Long term (current) use of oral hypoglycemic drugs; Z79.01 Long term (current) use of anticoagulants
CPT/HCPCS: 0241U; 36415; 71045; 80053; 81001; 81003; 82728; 82803; 82947; 83540; 83550; 83605; 83735; 83880; 84100; 84145; 84484; 85025; 85379; 86140; 87077; 87086; 87186; 93005; 93010; 94640; 94660; 94664; 94762; 96374; 96375; 99285-25; A9270; C9399; J0248; J1100; J1750; J1940; J2930; J7050; J7512

== ENCOUNTER 2024-10-19 13:58 | Emergency (ER) | payer OTHER ==
[~2024-10-19] VITALS: Ht 175.3 cm; Wt 88.0 kg
[~2024-10-19 13:58] MED LIST changes: +CLOBETASOL EMOL15 G1 TOP; +DICLOFENAC SOD100 GM TOP; +ELIQUIS5 M2 PO; +LEVO750 PO; +OLUMIANT2 MG PO; +POTCHL20ER PO
[2024-10-19 15:34] LABS: BASOPHILS ABSOLUTE AUTO 0.08 K/mm3 (0.00-0.23); BASOPHILS PERCENT AUTO 1 % (0-2); EOSINOPHILS ABSOLUTE AUTO 0.16 K/mm3 (0.00-0.68); EOSINOPHILS PERCENT AUTO 2 % (0-6); Hematocrit 35.9 % (37.0-53.0); Hemoglobin 11.2 g/dL (13.5-17.5); IMMATURE GRAN ABSOLUTE AUTO 0.06 K/mm3 (0.00-0.10); IMMATURE GRAN PERCENT AUTO 1 % (0-1); LYMPHOCYTES ABSOLUTE AUTO 1.70 K/mm3 (0.84-5.20); LYMPHOCYTES PERCENT AUTO 22 % (21-46); MONOCYTES ABSOLUTE AUTO 0.65 K/mm3 (0.16-1.47); MONOCYTES PERCENT AUTO 9 % (4-13); Mean Corpuscular HGB Conc 31.2 g/dL (31.5-36.5); Mean Corpuscular Volume 98 fL (80-100); NEUTROPHILS ABSOLUTE AUTO 4.99 K/mm3 (1.96-9.15); NEUTROPHILS PERCENT AUTO 65 % (41-73); NRBC ABSOLUTE 0.00 K/mm3 (0.00-0.02); NRBC Auto 0.0 /100 WBC (0.0-0.2); Platelet Count 171 K/mm3 (150-400); RDW Coefficient Variation 15.9 % (11.7-14.2); RDW Standard Deviation 56.6 fL (35.1-46.3)
[2024-10-19 15:54] LABS: Alanine Aminotransfer (ALT/SGP 24.0 U/L (12-78); Albumin, Blood 2.9 g/dL (3.4-5.0); Albumin/Globulin Ratio 0.8 (0.8-1.8); Anion Gap 5.0 mmol/L (3-11); Aspartate Aminotrans (AST/SGOT 15.0 U/L (12-37); Bilirubin, Total 0.5 mg/dL (0.1-1.0); Blood Urea Nitrogen 22.0 mg/dL (8-24); CO2, Blood 30.0 mmol/L (21-32); Calcium, Blood 8.3 mg/dL (8.5-10.1); Chloride, Blood 110.0 mmol/L (98-108); Creatinine, Blood 1.02 mg/dL (0.60-1.20); Globulin, Blood 3.6 g/dL (2.2-4.0); Glucose, Blood 87.0 mg/dL (70-99); Potassium, Blood 4.4 mmol/L (3.5-5.5); Sodium, Blood 141.0 mmol/L (136-145); Total Protein, Blood 6.5 g/dL (6.4-8.2)
[2024-10-19 18:13] VITALS: BP 119/63
== END 2024-10-19 18:34 | disposition home or self-care (01) ==
LOC: ER 13:58
PROVIDERS: Emergency Medicine
DX: R05.9 Cough, unspecified (principal); R04.2 Hemoptysis; J44.9 Chronic obstructive pulmonary disease, unspecified; I48.91 Unspecified atrial fibrillation; I11.0 Hypertensive heart disease with heart failure; I50.30 Unspecified diastolic (congestive) heart failure; E78.5 Hyperlipidemia, unspecified; E11.9 Type 2 diabetes mellitus without complications; G47.33 Obstructive sleep apnea (adult) (pediatric); I25.10 Atherosclerotic heart disease of native coronary artery without angina pectoris; Z95.1 Presence of aortocoronary bypass graft; Z87.891 Personal history of nicotine dependence; Z99.81 Dependence on supplemental oxygen; Z88.5 Allergy status to narcotic agent; Z88.0 Allergy status to penicillin; Z88.1 Allergy status to other antibiotic agents; Z88.8 Allergy status to other drugs, medicaments and biological substances; Z79.01 Long term (current) use of anticoagulants; Z79.51 Long term (current) use of inhaled steroids; Z79.84 Long term (current) use of oral hypoglycemic drugs; Z79.899 Other long term (current) drug therapy
CPT/HCPCS: 71045; 80053; 83880; 84484; 85025; 93005; 93010; 99285-25

== ENCOUNTER 2025-04-14 08:32 | Emergency (ER) | payer OTHER ==
[~2025-04-14] VITALS: Ht 177.8 cm; Wt 80.3 kg
[2025-04-14 09:26] LABS: BASOPHILS ABSOLUTE AUTO 0.09 K/mm3 (0.00-0.23); BASOPHILS PERCENT AUTO 1 % (0-2); EOSINOPHILS ABSOLUTE AUTO 0.04 K/mm3 (0.00-0.68); EOSINOPHILS PERCENT AUTO 0 % (0-6); Hematocrit 40.3 % (37.0-53.0); Hemoglobin 12.5 g/dL (13.5-17.5); IMMATURE GRAN ABSOLUTE AUTO 0.05 K/mm3 (0.00-0.10); IMMATURE GRAN PERCENT AUTO 0 % (0-1); LYMPHOCYTES ABSOLUTE AUTO 1.21 K/mm3 (0.84-5.20); LYMPHOCYTES PERCENT AUTO 9 % (21-46); MONOCYTES ABSOLUTE AUTO 0.66 K/mm3 (0.16-1.47); MONOCYTES PERCENT AUTO 5 % (4-13); Mean Corpuscular HGB Conc 31.0 g/dL (31.5-36.5); Mean Corpuscular Volume 94 fL (80-100); NEUTROPHILS ABSOLUTE AUTO 10.79 K/mm3 (1.96-9.15); NEUTROPHILS PERCENT AUTO 84 % (41-73); NRBC ABSOLUTE 0.00 K/mm3 (0.00-0.02); NRBC Auto 0.0 /100 WBC (0.0-0.2); Platelet Count 185 K/mm3 (150-400); RDW Coefficient Variation 14.6 % (11.7-14.2); RDW Standard Deviation 49.7 fL (35.1-46.3)
[2025-04-14 09:40] LABS: Alanine Aminotransfer (ALT/SGP 55.0 U/L (12-78); Albumin, Blood 3.3 g/dL (3.4-5.0); Albumin/Globulin Ratio 0.9 (0.8-1.8); Anion Gap 12.0 mmol/L (3-11); Aspartate Aminotrans (AST/SGOT 62.0 U/L (12-37); Bilirubin, Total 1.9 mg/dL (0.1-1.0); Blood Urea Nitrogen 38.0 mg/dL (8-24); CO2, Blood 25.0 mmol/L (21-32); Calcium, Blood 8.9 mg/dL (8.5-10.1); Chloride, Blood 105.0 mmol/L (98-108); Creatinine, Blood 1.16 mg/dL (0.60-1.20); Globulin, Blood 3.7 g/dL (2.2-4.0); Glucose, Blood 120.0 mg/dL (70-99); Potassium, Blood 4.7 mmol/L (3.5-5.5); Sodium, Blood 137.0 mmol/L (136-145); Total Protein, Blood 7.0 g/dL (6.4-8.2)
[2025-04-14] MEDS ORDERED: Albuterol 2.5 MG/3 ML VIAL INH SCH (10:20)
[2025-04-14 11:52] LABS: Influenza A, PCR NEGATIVE (NEGATIVE); Influenza B, PCR NEGATIVE (NEGATIVE); Resp Syncytial Virus, PCR NEGATIVE (NEGATIVE); SARS-Cov-2 (COVID-19) PCR, MMC NEGATIVE (NEGATIVE)
[2025-04-14] MEDS ORDERED: METPRE4DP PO (12:41)
[2025-04-14] MEDS ORDERED: AZIT250 PO (12:41)
[2025-04-14 12:52] VITALS: BP 131/77
== END 2025-04-14 12:58 | disposition home or self-care (01) ==
LOC: ER 08:32
PROVIDERS: Emergency Medicine
DX: J44.1 Chronic obstructive pulmonary disease with (acute) exacerbation (principal); I11.0 Hypertensive heart disease with heart failure; I50.9 Heart failure, unspecified; E78.5 Hyperlipidemia, unspecified; E11.9 Type 2 diabetes mellitus without complications; G47.33 Obstructive sleep apnea (adult) (pediatric); Z87.891 Personal history of nicotine dependence; Z88.5 Allergy status to narcotic agent; Z88.0 Allergy status to penicillin; Z88.1 Allergy status to other antibiotic agents; Z88.8 Allergy status to other drugs, medicaments and biological substances; Z79.899 Other long term (current) drug therapy; Z79.51 Long term (current) use of inhaled steroids; Z79.84 Long term (current) use of oral hypoglycemic drugs
CPT/HCPCS: 71046; 80053; 83690; 83880; 84484; 85025; 87637; 93005; 93010; 96374; 99284-25; A9270; J2919